=== PATIENT | female | born 1945 | race Caucasian/White ===

== ENCOUNTER 2022-08-03 20:38 | Inpatient (IN) | payer OTHER ==
[~2022-08-03] VITALS: Ht 160 cm; Wt 73.4 kg
[2022-08-03] MEDS ORDERED: ONDANSETRON HCL 4 MG/2 ML VIAL IV ONE (21:00)
[2022-08-03 22:27] LABS: Basophils # (auto) 0 10 ^3/uL (0-0.2); Basophils % (auto) 0.2 % (0.0-2.0); Eosinophils # (auto) 0 10 ^3/uL (0-0.8); Eosinophils % (auto) 0.1 % (0.0-7.0); Hematocrit 42.2 % (36.0-46.0); Hemoglobin 14.5 g/dL (12.2-16.2); Lymphocytes # (auto) 2.4 10 ^3/uL (0.4-5.4); Lymphocytes % (auto) 16.8 % (10.0-50.0); Mean Corpuscular Hemoglobin 32.8 pg (28.0-32.0); Mean Corpuscular Hgb Conc. 34.4 g/dL (32.0-36.0); Mean Corpuscular Volume 95.4 fL (80.0-100.0); Monocytes # (auto) 1.2 10 ^3/uL (0-1.3); Monocytes % (auto) 8.2 % (0.0-12.0); Neutrophils # (auto) 10.6 10 ^3/uL (1.6-8.6); Neutrophils % (auto) 74.7 % (37.0-80.0); Nucleated Red Blood Cells % 0.1 %; Red Blood Cells 4.42 10^6/uL (4.0-5.20); Red Cell Distribution Width 12.5 % (11.8-14.3); White Blood Cell 14.1 10^3/uL (4.4-10.8)
[2022-08-03 22:49] LABS: Albumin 3.8 g/dL (3.4-5.0); BUN/Creatinine Ratio 14.1; Calcium 8.6 mg/dL (8.5-10.1); Potassium 3.5 mmol/L (3.5-5.1)
[2022-08-03 22:51] LABS: Bilirubin, Total 1.2 mg/dL (0.2-1.0); Total Protein 6.7 g/dL (6.4-8.2)
[2022-08-04] MEDS ORDERED: PROMETHAZINE HCL 25 MG/ML 1ML IV ONE (00:30)
[2022-08-04] MEDS ORDERED: IOHEXOL 300 MG/ML 100ML BOTTLE IJ ONE (00:43)
[2022-08-04] MEDS ORDERED: HEPARIN SODIUM (PORCINE) 5000 UNITS/ML 1ML VIAL IV ONE (02:00)
[2022-08-04] MEDS ORDERED: MORPHINE SULFATE INJ 2 MG/ml SYRG IV ONE (02:15)
[2022-08-04] MEDS ORDERED: SODIUM CHLORIDE 0.9% 1,000 ML IV ONE (02:45)
[2022-08-04] MEDS ORDERED: dilTIAZem HCL 50 MG/10 ML VIAL IV ONE (02:50)
[2022-08-04] MEDS ORDERED: dilTIAZem 25 MG/5 ML VIAL IV ONE ×2 (03:00→04:30)
[2022-08-04] MEDS ORDERED: dilTIAZem 125mg/125ml BAG KIT 125 ML IV ONE (03:00)
[2022-08-04] MEDS ORDERED: HEPARIN DRIP/D5W 100UNITS/ML 250 ML IV SCH (04:00)
[2022-08-04 04:10] LABS: INR 1.03 (0.9-1.15)
[2022-08-04] MEDS ORDERED: AMIODARONE HCL (50 MG/ ML) 3 ML VIAL IV ONE (04:26)
[2022-08-04] MEDS ORDERED: AMIODARONE 450mg/250ml AE 250 ML IV ONE (04:27)
[2022-08-04] MEDS ORDERED: AMIODARONE HCL 150 MG in D5W 5% 100 ML IV ONE (04:30)
[2022-08-04] MEDS ORDERED: AMIODARONE 450mg/250ml AE 250 ML IV SCH ×2 (04:30→21:15)
[2022-08-04] MEDS ORDERED: HYDROcodone-ACET 5/325MG TAB PO PRN (05:00)
[2022-08-04] MEDS ORDERED: ONDANSETRON HCL 4 MG/2 ML VIAL IV PRN (05:00)
[2022-08-04] MEDS ORDERED: ACETAMINOPHEN 325 MG TAB PO PRN (05:00)
[2022-08-04] MEDS ORDERED: DOCUSATE SOD 100 MG CAP PO PRN (05:00)
[2022-08-04] MEDS ORDERED: CIPROFLOXACIN 400MG/200ML 200 ML IV SCH (05:00)
[2022-08-04] MEDS ORDERED: METOPROLOL TARTRATE 25 MG TAB PO ONE (05:30)
[2022-08-04] MEDS ORDERED: metroNIDAZOLE 500MG/100ML 100 ML IV SCH (06:00)
[2022-08-04] MEDS: SODIUM CHLOR 0.9% PF (SALINE LOCK) 10ML VIAL/SYR IV SCH ×3 (06:03→22:00)
[2022-08-04 06:58] LABS: Basophils # (auto) 0 10 ^3/uL (0-0.2); Basophils % (auto) 0.1 % (0.0-2.0); Eosinophils # (auto) 0 10 ^3/uL (0-0.8); Eosinophils % (auto) 0.3 % (0.0-7.0); Hematocrit 40.9 % (36.0-46.0); Hemoglobin 14.3 g/dL (12.2-16.2); Lymphocytes # (auto) 3.1 10 ^3/uL (0.4-5.4); Lymphocytes % (auto) 20.3 % (10.0-50.0); Mean Corpuscular Hemoglobin 33.7 pg (28.0-32.0); Mean Corpuscular Hgb Conc. 34.9 g/dL (32.0-36.0); Mean Corpuscular Volume 96.7 fL (80.0-100.0); Monocytes # (auto) 1.5 10 ^3/uL (0-1.3); Monocytes % (auto) 9.6 % (0.0-12.0); Neutrophils # (auto) 10.7 10 ^3/uL (1.6-8.6); Neutrophils % (auto) 69.7 % (37.0-80.0); Nucleated Red Blood Cells % 0.1 %; Red Blood Cells 4.23 10^6/uL (4.0-5.20); Red Cell Distribution Width 12.6 % (11.8-14.3); White Blood Cell 15.4 10^3/uL (4.4-10.8)
[2022-08-04 07:29] LABS: Potassium 3.7 mmol/L (3.5-5.1)
[2022-08-04 07:39] LABS: Albumin 3.9 g/dL (3.4-5.0); BUN/Creatinine Ratio 12.7; Bilirubin, Total 1.2 mg/dL (0.2-1.0); Calcium 8.1 mg/dL (8.5-10.1); Total Protein 6.1 g/dL (6.4-8.2)
[2022-08-04 08:56] LABS: Urine Blood Normal /uL (Negative); Urine Specific Gravity 1.032 (1.001-1.035)
[2022-08-04] MEDS ORDERED: FAMOTIDINE (10MG/ML) 2ML VL IV SCH (10:00)
[2022-08-04] MEDS: METOPROLOL TARTRATE 25 MG TAB PO SCH ×2 (10:41→22:08)
[2022-08-04] MEDS ORDERED: PANTOPRAZOLE 80 MG in SODIUM CHL 0.9% 100 ML IV ONE (11:45)
[2022-08-04] MEDS: metroNIDAZOLE 500MG/100ML 100 ML IV SCH (14:46)
[2022-08-04] MEDS: MORPHINE SULFATE INJ 2 MG/ml SYRG IV PRN (14:48)
[2022-08-04] MEDS: PANTOPRAZOLE 40mg/50ML NS AE 50 ML IV SCH ×4 (15:05→22:38)
[2022-08-04] MEDS ORDERED: AMIODARONE HCL IV SCH (21:45)
[2022-08-04] MEDS ORDERED: D5W 5% IV SCH (21:45)
[2022-08-04] MEDS: HYDROcodone-ACET 5/325MG TAB PO PRN (22:08)
[2022-08-05] MEDS: CIPROFLOXACIN 400MG/200ML 200 ML IV SCH ×3 (00:28→12:20)
[2022-08-05] MEDS: PANTOPRAZOLE 40mg/50ML NS AE 50 ML IV SCH ×3 (01:54→07:10)
[2022-08-05] MEDS: HYDROcodone-ACET 5/325MG TAB PO PRN ×3 (05:13→20:41)
[2022-08-05] MEDS: metroNIDAZOLE 500MG/100ML 100 ML IV SCH ×4 (06:00→22:38)
[2022-08-05] MEDS: SODIUM CHLOR 0.9% PF (SALINE LOCK) 10ML VIAL/SYR IV SCH ×3 (06:00→22:00)
[2022-08-05] MEDS: METOPROLOL TARTRATE 25 MG TAB PO SCH ×2 (10:50→22:39)
[2022-08-05] MEDS ORDERED: ACETAMINOPHEN IV 1000 MG/100ML (10MG/ML) IV ONE (13:00)
[2022-08-05] MEDS ORDERED: ACETAMINOPHEN 325 MG TAB PO PRN (13:00)
[2022-08-05 14:14] LABS: Basophils # (auto) 0.1 10 ^3/uL (0-0.2); Basophils % (auto) 0.5 % (0.0-2.0); Eosinophils # (auto) 0.6 10 ^3/uL (0-0.8); Eosinophils % (auto) 5.3 % (0.0-7.0); Hematocrit 39.3 % (36.0-46.0); Hemoglobin 13.5 g/dL (12.2-16.2); Lymphocytes # (auto) 2.5 10 ^3/uL (0.4-5.4); Lymphocytes % (auto) 22.4 % (10.0-50.0); Mean Corpuscular Hgb Conc. 34.4 g/dL (32.0-36.0); Mean Corpuscular Volume 95.8 fL (80.0-100.0); Monocytes # (auto) 0.9 10 ^3/uL (0-1.3); Monocytes % (auto) 8.3 % (0.0-12.0); Neutrophils # (auto) 6.9 10 ^3/uL (1.6-8.6); Neutrophils % (auto) 63.5 % (37.0-80.0); Nucleated Red Blood Cells % 0.1 %; Red Cell Distribution Width 12.6 % (11.8-14.3); White Blood Cell 10.9 10^3/uL (4.4-10.8)
[2022-08-05 14:32] LABS: Albumin 3.8 g/dL (3.4-5.0); Calcium 8.2 mg/dL (8.5-10.1)
[2022-08-05 14:36] LABS: BUN/Creatinine Ratio 8.8; Bilirubin, Total 1.1 mg/dL (0.2-1.0); Total Protein 6.3 g/dL (6.4-8.2)
[2022-08-05 15:16] LABS: Potassium 2.9 mmol/L (3.5-5.1)
[2022-08-05] MEDS: POTASSIUM CHL 20MEQ/100ML 100 ML IV SCH ×2 (16:08→18:30)
[2022-08-05] MEDS ORDERED: AMIODARONE HCL IV SCH (20:45)
[2022-08-05] MEDS ORDERED: D5W 5% IV SCH (20:45)
[2022-08-05] MEDS ORDERED: AMIODARONE HCL 200 MG TAB PO SCH (22:00)
[2022-08-05] MEDS: PANTOPRAZOLE 40 MG/10 ML VIAL INJ IV SCH (22:37)
[2022-08-06 02:15] VITALS: BP 114/42
[2022-08-06] MEDS: MORPHINE SULFATE INJ 2 MG/ml SYRG IV PRN (02:43)
[2022-08-06 05:00] VITALS: BP 134/48
[2022-08-06] MEDS: SODIUM CHLOR 0.9% PF (SALINE LOCK) 10ML VIAL/SYR IV SCH ×3 (05:50→22:02)
[2022-08-06] MEDS: metroNIDAZOLE 500MG/100ML 100 ML IV SCH ×3 (05:54→23:01)
[2022-08-06] MEDS ORDERED: METO25TA5 PO (07:09)
[2022-08-06] MEDS ORDERED: TRAZ100T3 PO (07:09)
[2022-08-06] MEDS ORDERED: SUMA50TA16 PO (07:09)
[2022-08-06] MEDS ORDERED: HYDR-4072 PO (07:09)
[2022-08-06] MEDS ORDERED: TRAZ1TAB12 PO (07:09)
[2022-08-06] MEDS ORDERED: SPIR25TA8 PO (07:09)
[2022-08-06] MEDS ORDERED: ATOR20TA50 (07:09)
[2022-08-06] MEDS ORDERED: PANT40T PO (07:09)
[2022-08-06 07:13] LABS: Basophils # (auto) 0 10 ^3/uL (0-0.2); Basophils % (auto) 0.4 % (0.0-2.0); Eosinophils # (auto) 0.7 10 ^3/uL (0-0.8); Eosinophils % (auto) 6.9 % (0.0-7.0); Hematocrit 35.5 % (36.0-46.0); Hemoglobin 12.6 g/dL (12.2-16.2); Lymphocytes # (auto) 2.2 10 ^3/uL (0.4-5.4); Lymphocytes % (auto) 23.3 % (10.0-50.0); Mean Corpuscular Hemoglobin 33.9 pg (28.0-32.0); Mean Corpuscular Hgb Conc. 35.4 g/dL (32.0-36.0); Mean Corpuscular Volume 95.8 fL (80.0-100.0); Monocytes # (auto) 0.8 10 ^3/uL (0-1.3); Monocytes % (auto) 8.2 % (0.0-12.0); Neutrophils # (auto) 5.7 10 ^3/uL (1.6-8.6); Neutrophils % (auto) 61.2 % (37.0-80.0); Nucleated Red Blood Cells % 0.1 %; Red Blood Cells 3.71 10^6/uL (4.0-5.20); Red Cell Distribution Width 12.4 % (11.8-14.3); White Blood Cell 9.4 10^3/uL (4.4-10.8)
[2022-08-06 07:35] LABS: Albumin 3.5 g/dL (3.4-5.0); BUN/Creatinine Ratio 7.3; Bilirubin, Total 1.2 mg/dL (0.2-1.0); Calcium 7.8 mg/dL (8.5-10.1); Magnesium 2.3 mg/dL (1.6-2.6); Potassium 3.5 mmol/L (3.5-5.1); Total Protein 5.6 g/dL (6.4-8.2)
[2022-08-06 09:00] VITALS: BP 127/55
[2022-08-06] MEDS: AMIODARONE HCL 200 MG TAB PO SCH ×2 (10:02→21:46)
[2022-08-06] MEDS: HYDROcodone-ACET 5/325MG TAB PO PRN ×3 (10:04→22:00)
[2022-08-06] MEDS: METOPROLOL TARTRATE 25 MG TAB PO SCH ×2 (10:05→21:56)
[2022-08-06] MEDS: PANTOPRAZOLE 40 MG/10 ML VIAL INJ IV SCH ×2 (10:06→21:46)
[2022-08-06] MEDS: CIPROFLOXACIN 400MG/200ML 200 ML IV SCH ×2 (10:07→21:45)
[2022-08-06 12:47] VITALS: BP 145/48
[2022-08-06] MEDS ORDERED: LIDOCAINE VISCOUS 2% 15ML UD ONE (12:58)
[2022-08-06] MEDS ORDERED: MIDAZOLAM HCL 2MG/2ML 2ml VIAL (1mg/ml) ONE (12:59)
[2022-08-06] MEDS ORDERED: fentaNYL CITRATE 100 MCG/2 ML VL ONE (12:59)
[2022-08-06] MEDS: diphenhdrAMINE HCL 50 MG/1 ML VL ONE ×2 (13:17→13:19)
[2022-08-06] MEDS: SUCRALFATE 1 GM/10 ML ORAL SUSP PO SCH ×2 (16:20→21:54)
[2022-08-06 17:00] VITALS: BP 156/63
[2022-08-06 22:00] VITALS: BP 115/63
[2022-08-07] MEDS: NITROGLYCERIN 0.4 MG SL TAB SL PRN ×2 (03:15→03:20)
[2022-08-07] MEDS: MORPHINE SULFATE INJ 2 MG/ml SYRG IV PRN ×4 (03:30→21:19)
[2022-08-07 05:00] VITALS: BP 147/89
[2022-08-07] MEDS: metroNIDAZOLE 500MG/100ML 100 ML IV SCH ×3 (06:00→21:17)
[2022-08-07] MEDS: HYDROcodone-ACET 5/325MG TAB PO PRN (06:00)
[2022-08-07 06:15] LABS: Basophils # (auto) 0 10 ^3/uL (0-0.2); Basophils % (auto) 0.3 % (0.0-2.0); Eosinophils # (auto) 0.6 10 ^3/uL (0-0.8); Eosinophils % (auto) 6.1 % (0.0-7.0); Hematocrit 35.4 % (36.0-46.0); Hemoglobin 12.3 g/dL (12.2-16.2); Lymphocytes # (auto) 1.6 10 ^3/uL (0.4-5.4); Lymphocytes % (auto) 17.4 % (10.0-50.0); Mean Corpuscular Hemoglobin 33.9 pg (28.0-32.0); Mean Corpuscular Hgb Conc. 34.8 g/dL (32.0-36.0); Mean Corpuscular Volume 97.4 fL (80.0-100.0); Monocytes # (auto) 0.8 10 ^3/uL (0-1.3); Monocytes % (auto) 8.1 % (0.0-12.0); Neutrophils # (auto) 6.3 10 ^3/uL (1.6-8.6); Neutrophils % (auto) 68.1 % (37.0-80.0); Nucleated Red Blood Cells % 0.1 %; Red Blood Cells 3.64 10^6/uL (4.0-5.20); Red Cell Distribution Width 12.9 % (11.8-14.3); White Blood Cell 9.3 10^3/uL (4.4-10.8)
[2022-08-07] MEDS: SUCRALFATE 1 GM/10 ML ORAL SUSP PO SCH ×4 (06:27→21:20)
[2022-08-07] MEDS: SODIUM CHLOR 0.9% PF (SALINE LOCK) 10ML VIAL/SYR IV SCH ×3 (06:27→21:19)
[2022-08-07 06:42] LABS: BUN/Creatinine Ratio 5.2; Calcium 8.3 mg/dL (8.5-10.1); Potassium 3.3 mmol/L (3.5-5.1)
[2022-08-07 08:00] VITALS: BP 144/69
[2022-08-07] MEDS: PANTOPRAZOLE 40 MG/10 ML VIAL INJ IV SCH ×2 (10:03→21:18)
[2022-08-07] MEDS: METOPROLOL TARTRATE 25 MG TAB PO SCH ×2 (10:04→21:20)
[2022-08-07] MEDS: AMIODARONE HCL 200 MG TAB PO SCH ×2 (10:04→21:21)
[2022-08-07] MEDS: CIPROFLOXACIN 400MG/200ML 200 ML IV SCH (10:04)
[2022-08-07 12:00] VITALS: BP 132/63
[2022-08-07] MEDS ORDERED: POTASSIUM CHL 20 Meq TABLET PO ONE (12:00)
[2022-08-07] MEDS ORDERED: CLOPIDOGREL BISULFATE 75 MG TAB PO ONE (13:15)
[2022-08-07 16:00] VITALS: BP 143/62
[2022-08-07 22:00] VITALS: BP 147/61
[2022-08-08 00:03] VITALS: BP 137/52
[2022-08-08] MEDS ORDERED: levoFLOXacin 500MG 100 ML IV SCH (10:00)
[2022-08-08] MEDS ORDERED: CLOPIDOGREL BISULFATE 75 MG TAB PO SCH (10:00)
== END 2022-08-08 00:50 | disposition short-term general hospital (02) | DRG 871 ==
LOC: ER 20:38 → EDBD 20:38 → TELE 08-04 06:45 → TELE-EAST 08-06 01:52
PROVIDERS: ADMIT Nurse Practitioner Family; ATTEND Internal Medicine
PROC: 0DB68ZX Excision of Stomach, Via Natural or Artificial Opening Endoscopic, Diagnostic (ICD-10-PCS; 2022-08-06)
PROC: 0DB98ZX Excision of Duodenum, Via Natural or Artificial Opening Endoscopic, Diagnostic (ICD-10-PCS; principal; 2022-08-06 13:18)
DX: A41.9 Sepsis, unspecified organism (principal); I21.4 Non-ST elevation (NSTEMI) myocardial infarction; K29.71 Gastritis, unspecified, with bleeding; K29.91 Gastroduodenitis, unspecified, with bleeding; K27.4 Chronic or unspecified peptic ulcer, site unspecified, with hemorrhage; I10 Essential (primary) hypertension; K52.9 Noninfective gastroenteritis and colitis, unspecified; D72.829 Elevated white blood cell count, unspecified; E66.9 Obesity, unspecified; E87.6 Hypokalemia; K21.9 Gastro-esophageal reflux disease without esophagitis; K44.9 Diaphragmatic hernia without obstruction or gangrene; K64.9 Unspecified hemorrhoids; Z20.822 Contact with and (suspected) exposure to COVID-19; R79.89 Other specified abnormal findings of blood chemistry; I48.91 Unspecified atrial fibrillation; E78.5 Hyperlipidemia, unspecified; M79.7 Fibromyalgia; Z68.38 Body mass index [BMI] 38.0-38.9, adult; Z79.82 Long term (current) use of aspirin; Z90.710 Acquired absence of both cervix and uterus; Z91.81 History of falling
CPT/HCPCS: 36415; 43239; 70450; 71045; 74177; 80048; 80053; 81003; 82962; 83605; 83735; 83880; 84484; 85025; 85048; 85610; 85730; 87040; 87045; 87426; 87427; 87493; 93005; 96374; 96375; 99291; C9113; G0378; J0131; J2250; J2405; J3480; J3490; J7060

== ENCOUNTER 2022-08-16 11:13 | Inpatient (IN) | payer OTHER ==
[~2022-08-16] VITALS: Ht 160 cm; Wt 75.3 kg
[~2022-08-16 11:13] MED LIST: ATOR20TA50; HYDR-4072 PO; METO25TA5 PO; PANT40T PO; SPIR25TA8 PO; SUMA50TA16 PO; TRAZ100T3 PO; TRAZ1TAB12 PO
[2022-08-16] MEDS ORDERED: PANTOPRAZOLE 40 MG/10 ML VIAL INJ IV ONE ×2 (11:30→22:15)
[2022-08-16 12:13] LABS: Basophils # (auto) 0 10 ^3/uL (0-0.2); Basophils % (auto) 0.6 % (0.0-2.0); Eosinophils # (auto) 0.4 10 ^3/uL (0-0.8); Eosinophils % (auto) 4.8 % (0.0-7.0); Hematocrit 38.9 % (36.0-46.0); Hemoglobin 12.9 g/dL (12.2-16.2); Lymphocytes # (auto) 1.5 10 ^3/uL (0.4-5.4); Lymphocytes % (auto) 16.9 % (10.0-50.0); Mean Corpuscular Hemoglobin 32.6 pg (28.0-32.0); Mean Corpuscular Volume 98.8 fL (80.0-100.0); Monocytes # (auto) 0.5 10 ^3/uL (0-1.3); Monocytes % (auto) 5.3 % (0.0-12.0); Neutrophils # (auto) 6.3 10 ^3/uL (1.6-8.6); Neutrophils % (auto) 72.4 % (37.0-80.0); Nucleated Red Blood Cells % 0.1 %; Red Blood Cells 3.94 10^6/uL (4.0-5.20); Red Cell Distribution Width 13.3 % (11.8-14.3); White Blood Cell 8.7 10^3/uL (4.4-10.8)
[2022-08-16 12:28] LABS: Urine Bacteria NONE SEEN /hpf (None Seen); Urine Blood 3+ /uL (Negative); Urine Specific Gravity 1.002 (1.001-1.035); Urine WBC <1 /hpf (0 - 5)
[2022-08-16 12:41] LABS: INR 1.37 (0.9-1.15); Partial Thromboplastin Time 50.5 sec (24.6-33.4)
[2022-08-16 13:21] LABS: Potassium 4.5 mmol/L (3.5-5.1)
[2022-08-16 13:58] LABS: Albumin 3.5 g/dL (3.4-5.0); BUN/Creatinine Ratio 9.9; Calcium 9.4 mg/dL (8.5-10.1)
[2022-08-16 14:02] LABS: Bilirubin, Total 0.7 mg/dL (0.2-1.0); Total Protein 6.8 g/dL (6.4-8.2)
[2022-08-16] MEDS ORDERED: HYDROcodone-ACET 5/325MG TAB PO ONE (16:00)
[2022-08-16] MEDS ORDERED: cloNIDine HCL 0.1 MG TAB PO ONE (17:15)
[2022-08-16] MEDS ORDERED: AMIODARONE HCL 200 MG TAB PO ONE (18:00)
[2022-08-16] MEDS ORDERED: ASPirin 81 mg TAB PO ONE (20:00)
[2022-08-16] MEDS ORDERED: DABI150C5 PO (20:09)
[2022-08-16] MEDS ORDERED: PATIENTS OWN MEDICATION PO ONE (20:15)
[2022-08-16] MEDS ORDERED: AMIO200T33 PO (22:06)
[2022-08-16] MEDS ORDERED: HYDR-4798 PO (22:13)
[2022-08-16] MEDS ORDERED: ASPI325T4 PO (22:13)
[2022-08-16] MEDS ORDERED: SUCR1TAB PO (22:13)
[2022-08-16] MEDS ORDERED: PANT40TA2 PO (22:13)
[2022-08-16] MEDS ORDERED: CLOP75TA28 PO (22:13)
[2022-08-16] MEDS ORDERED: ATOR40TA52 PO (22:13)
[2022-08-16] MEDS ORDERED: cefTRIAXone 1GM/50ML D5W 50 ML IV ONE (22:15)
[2022-08-16] MEDS ORDERED: MORPHINE SULFATE INJ 2 MG/ml SYRG IV PRN (22:15)
[2022-08-16] MEDS ORDERED: NITROGLYCERIN 0.4 MG SL TAB SL PRN (22:15)
[2022-08-16] MEDS ORDERED: metroNIDAZOLE 500MG/100ML 100 ML IV ONE (22:15)
[2022-08-16] MEDS ORDERED: BISO5TAB44 PO (22:16)
[2022-08-16] MEDS: HYDROcodone-ACET 10/325MG TAB PO PRN (23:01)
[2022-08-17] VITALS (9 sets, daily range): BP systolic 127–164; BP diastolic 35–84
[2022-08-17] MEDS: HYDROcodone-ACET 10/325MG TAB PO PRN ×3 (05:19→20:42)
[2022-08-17] MEDS: metroNIDAZOLE 500MG/100ML 100 ML IV SCH ×3 (05:48→21:59)
[2022-08-17] MEDS ORDERED: hydrALAZINE HCL 20 MG/ML VL IV ONE (07:00)
[2022-08-17 08:29] LABS: Basophils # (auto) 0 10 ^3/uL (0-0.2); Basophils % (auto) 0.5 % (0.0-2.0); Eosinophils # (auto) 0.4 10 ^3/uL (0-0.8); Eosinophils % (auto) 7.3 % (0.0-7.0); Hemoglobin 11.3 g/dL (12.2-16.2); Lymphocytes # (auto) 1.8 10 ^3/uL (0.4-5.4); Mean Corpuscular Hemoglobin 33.6 pg (28.0-32.0); Mean Corpuscular Hgb Conc. 35.4 g/dL (32.0-36.0); Mean Corpuscular Volume 94.9 fL (80.0-100.0); Monocytes # (auto) 0.4 10 ^3/uL (0-1.3); Monocytes % (auto) 8.2 % (0.0-12.0); Neutrophils # (auto) 2.9 10 ^3/uL (1.6-8.6); Nucleated Red Blood Cells % 0.2 %; Red Blood Cells 3.37 10^6/uL (4.0-5.20); Red Cell Distribution Width 13.1 % (11.8-14.3); White Blood Cell 5.5 10^3/uL (4.4-10.8)
[2022-08-17 08:43] LABS: Albumin 3.2 g/dL (3.4-5.0); Calcium 8.4 mg/dL (8.5-10.1); Potassium 3.4 mmol/L (3.5-5.1)
[2022-08-17 08:46] LABS: Bilirubin, Total 0.6 mg/dL (0.2-1.0); Total Protein 5.9 g/dL (6.4-8.2)
[2022-08-17] MEDS: cefTRIAXone 1GM/50ML D5W 50 ML IV SCH (10:28)
[2022-08-17] MEDS: PANTOPRAZOLE 40 MG/10 ML VIAL INJ IV SCH (10:29)
[2022-08-17] MEDS ORDERED: ACETAMINOPHEN 500 MG TAB PO PRN ×2 (10:45→16:30)
[2022-08-17] MEDS ORDERED: MORPHINE SULFATE INJ 2 MG/ml SYRG IV PRN ×2 (10:45→16:30)
[2022-08-17] MEDS ORDERED: ONDANSETRON HCL 4 MG/2 ML VIAL IV PRN (10:45)
[2022-08-17] MEDS ORDERED: cloNIDine HCL 0.1 MG TAB PO PRN (10:45)
[2022-08-17] MEDS ORDERED: SUCRALFATE 1 GM/10 ML ORAL SUSP GT SCH (11:30)
[2022-08-17] MEDS: SUCRALFATE 1 GM/10 ML ORAL SUSP PO SCH ×2 (13:27→16:42)
[2022-08-17] MEDS ORDERED: DABI150C5 PO (16:14)
[2022-08-17] MEDS ORDERED: BISA-13 PO (16:14)
[2022-08-17] MEDS: AMIODARONE HCL 200 MG TAB PO SCH (21:59)
[2022-08-17] MEDS: traZODone HCL 50 MG TAB PO SCH (21:59)
[2022-08-18] VITALS (8 sets, daily range): BP systolic 107–154; BP diastolic 32–70
[2022-08-18] MEDS: HYDROcodone-ACET 10/325MG TAB PO PRN ×5 (01:01→20:12)
[2022-08-18] MEDS: SUCRALFATE 1 GM/10 ML ORAL SUSP PO SCH ×3 (06:01→17:37)
[2022-08-18] MEDS: metroNIDAZOLE 500MG/100ML 100 ML IV SCH ×3 (06:01→22:00)
[2022-08-18 06:15] LABS: Basophils # (auto) 0.1 10 ^3/uL (0-0.2); Eosinophils # (auto) 0.4 10 ^3/uL (0-0.8); Eosinophils % (auto) 6.8 % (0.0-7.0); Hematocrit 31.2 % (36.0-46.0); Hemoglobin 10.6 g/dL (12.2-16.2); Lymphocytes # (auto) 1.7 10 ^3/uL (0.4-5.4); Lymphocytes % (auto) 31.6 % (10.0-50.0); Mean Corpuscular Hemoglobin 33.9 pg (28.0-32.0); Mean Corpuscular Hgb Conc. 34.1 g/dL (32.0-36.0); Mean Corpuscular Volume 99.4 fL (80.0-100.0); Monocytes # (auto) 0.5 10 ^3/uL (0-1.3); Monocytes % (auto) 8.3 % (0.0-12.0); Neutrophils # (auto) 2.9 10 ^3/uL (1.6-8.6); Neutrophils % (auto) 52.3 % (37.0-80.0); Nucleated Red Blood Cells % 0.1 %; Red Blood Cells 3.14 10^6/uL (4.0-5.20); Red Cell Distribution Width 13.7 % (11.8-14.3); White Blood Cell 5.5 10^3/uL (4.4-10.8)
[2022-08-18 06:51] LABS: Potassium 3.3 mmol/L (3.5-5.1)
[2022-08-18 07:15] LABS: BUN/Creatinine Ratio 8.4; Calcium 8.4 mg/dL (8.5-10.1)
[2022-08-18] MEDS: AMIODARONE HCL 200 MG TAB PO SCH ×2 (09:09→22:19)
[2022-08-18] MEDS: PANTOPRAZOLE 40 MG/10 ML VIAL INJ IV SCH (09:12)
[2022-08-18] MEDS ORDERED: ATENOLOL 25 MG TAB PO SCH (10:00)
[2022-08-18] MEDS ORDERED: CLOPIDOGREL BISULFATE 75 MG TAB PO SCH (10:00)
[2022-08-18] MEDS ORDERED: ASPirin 81 mg TAB PO SCH (10:00)
[2022-08-18] MEDS ORDERED: AMIODARONE HCL 200 MG TAB PO SCH (10:00)
[2022-08-18] MEDS ORDERED: POTASSIUM CHL 20 Meq TABLET PO ONE (10:15)
[2022-08-18] MEDS: cefTRIAXone 1GM/50ML D5W 50 ML IV SCH (11:58)
[2022-08-18] MEDS: traZODone HCL 50 MG TAB PO SCH (22:17)
[2022-08-19] MEDS ORDERED: ATENOLOL 25 MG TAB PO SCH (10:00)
[2022-08-19] MEDS ORDERED: BISOPROLOL 2.5 MG PO SCH (10:00)
== END 2022-08-18 22:18 | disposition short-term general hospital (02) | DRG 377 ==
LOC: EDBD 11:13 → ER 11:13 → TELE 22:25 → TELE-CENTR 08-17 04:43
PROVIDERS: ADMIT Registered Nurse; ATTEND Internal Medicine
PROC: 05HA33Z Insertion of Infusion Device into Left Brachial Vein, Percutaneous Approach (ICD-10-PCS; principal; 2022-08-16)
PROC: B54NZZA Ultrasonography of Left Upper Extremity Veins, Guidance (ICD-10-PCS; 2022-08-16)
DX: K92.2 Gastrointestinal hemorrhage, unspecified (principal); I21.A1 Myocardial infarction type 2; D68.69 Other thrombophilia; I48.0 Paroxysmal atrial fibrillation; E78.5 Hyperlipidemia, unspecified; I10 Essential (primary) hypertension; K80.20 Calculus of gallbladder without cholecystitis without obstruction; Z20.822 Contact with and (suspected) exposure to COVID-19; I25.10 Atherosclerotic heart disease of native coronary artery without angina pectoris; K21.9 Gastro-esophageal reflux disease without esophagitis; D64.9 Anemia, unspecified; I25.2 Old myocardial infarction; Z87.11 Personal history of peptic ulcer disease; Z90.710 Acquired absence of both cervix and uterus; Z95.5 Presence of coronary angioplasty implant and graft; Z94.9 Transplanted organ and tissue status, unspecified
CPT/HCPCS: 36415; 71045; 74176; 76705; 80048; 80053; 81001; 82270; 83690; 84484; 85025; 85610; 85730; 86850; 86900; 86901; 87040; 87045; 87086; 87426; 87427; 87493; 93005; 96365; 96366; 96368; 96375; 96376; 97163; C9113; G0378; J0696; J3490